=== PATIENT | female | born 1995 | race Caucasian/White ===

== ENCOUNTER 2020-08-23 19:49 | Inpatient (IN) | payer OTHER ==
[~2020-08-23] VITALS: Ht 162.6 cm; Wt 50.3 kg
--- NOTE | 2020-08-23 19:53 | NUR ---
Dr. Savage at bedside for mse.
[2020-08-23] MEDS ORDERED: HYDROMORPHONE 1 MG/1 ML DISP.SYRIN IV ONE ×2 (20:00→21:00)
[2020-08-23] MEDS ORDERED: ONDANSETRON 4 MG/2 ML VIAL IV ONE ×2 (20:00→21:00)
[2020-08-23] MEDS ORDERED: IV NORMAL SALINE 1000 ML BAG IV ONE (20:00)
--- NOTE | 2020-08-23 20:00 | NUR ---
Pt. bib ra 39 for chest pain radiating to the back starting 20 min prior. EMS placed 18g rac. Pt. was given Toridol 15mg IV in the field. Pt. states their pain is 10/10. Pt. has hx of sickle cell anemia.
[2020-08-23] MEDS ORDERED: HYDROMORPHONE 2 MG/1 ML DISP.SYRIN ONE ×2 (20:05→21:10)
[2020-08-23] MEDS ORDERED: ONDANSETRON 4 MG/2 ML VIAL ONE ×2 (20:05→21:09)
[2020-08-23 21:04] LABS: MEAN CORPUSCULAR HEMOGLOBIN 38.2 uug (24.7-32.8); MEAN CORPUSCULAR VOLUME 105.8 fL (75.5-95.3); PLATELET COUNT (AUTO) 186 K/uL (179-408)
--- NOTE | 2020-08-23 21:05 | NUR ---
Xray at bedside
[2020-08-23 21:10] LABS: CARBON DIOXIDE 24 mmol/L (21-32); CHLORIDE 107 mmol/L (98-107); CREATININE 0.3 mg/dL (0.6-1.3); GLUCOSE 95 mg/dL (74-106); HEMATOCRIT 19.3 % (31.2-41.9); POTASSIUM 3.7 mmol/L (3.5-5.1); UREA NITROGEN, BLOOD 8 mg/dL (7-18)
[2020-08-23 21:16] LABS: ALANINE AMINOTRANSFERASE 78 U/L (14-59); ALKALINE PHOSPHATASE 123 U/L (50-136); ASPARTATE AMINOTRANSFERASE 87 U/L (15-37); LIPASE 132 U/L (73-393)
[2020-08-23] MEDS ORDERED: ALBU8.5H8 IH (21:16)
[2020-08-23] MEDS ORDERED: TESTOSTERONE IM (21:31)
--- NOTE | 2020-08-23 21:35 | NUR ---
Verifying with pts. insurance if pt. can be admitted for sickle cell exacerbation.
--- NOTE | 2020-08-23 22:42 | NUR ---
Called [facility] to page Erik Patino NP.
--- NOTE | 2020-08-23 23:09 | NUR ---
Dr. Savage consulting w/ Dr. Rothman on phone for admitting pt.
--- NOTE | 2020-08-23 23:47 | NUR ---
Gave report to FE Cabezas. for pt. admission to tele rm [id number].
[2020-08-24] VITALS (10 sets, daily range): BP systolic 90–108; BP diastolic 46–71
--- NOTE | 2020-08-24 01:09 | NUR ---
Blood transfusion to be continued on 3rd floor where pt. is being admitted, Raulito MIRAMONTES aware.
--- NOTE | 2020-08-24 02:00 | NUR ---
Patient brought to Tele unit from Er via gurney by staff nurse.Patient AALOx4 with O2 at 2LPM via NC saturating well. Iv on Right AC 18 g patent and intact continue blood transfusion .Patient still c/o chest pain . VS 105/64,98.6 ,79 ,18.[facility] called and notified of the patient admission with Order received, noted and carried out. Diluadid IV PRN [address] now.Per Dr Moseley patient was signed out to some one . Dr Patino Notified as well .Awaiting for admitting orders.Charge nurse made aware. Will continue to monitor.
[2020-08-24] MEDS ORDERED: HYDROMORPHONE 1 MG/1 ML DISP.SYRIN IV PRN (03:30)
--- NOTE | 2020-08-24 04:00 | NUR ---
Blood transfusion completed. Assisted patient to bathroom using crutches. Afebrile, Bp 108/71, 18,89, 100 % with O2 at 2LPM via NC.
[2020-08-24] MEDS ORDERED: ACETAMINOPHEN 325 MG TABLET PO PRN (06:15)
[2020-08-24] MEDS ORDERED: ONDANSETRON 4 MG/2 ML VIAL IV PRN (06:15)
[2020-08-24] MEDS ORDERED: MAGNESIUM HYDROXIDE 30 ML LIQUID UDC PO PRN (06:15)
[2020-08-24] MEDS: PANTOPRAZOLE SODIUM 40 MG TABLET.DR PO SCH (06:56)
[2020-08-24 08:07] LABS: MEAN CORPUSCULAR HEMOGLOBIN 36.1 uug (24.7-32.8); MEAN CORPUSCULAR VOLUME 100.5 fL (75.5-95.3); PLATELET COUNT (AUTO) 168 K/uL (179-408)
[2020-08-24] MEDS: HYDROMORPHONE 1 MG/1 ML DISP.SYRIN IV PRN ×3 (08:26→21:55)
[2020-08-24 08:41] LABS: HEMATOCRIT 21.5 % (31.2-41.9)
[2020-08-24] MEDS: CEFTRIAXONE 1 G in IV DEXTROSE 5% 50 ML IV SCH (13:37)
[2020-08-24] MEDS: IV 1/2NS 1000 ML 1,000 ML IV PRN (13:38)
[2020-08-24 14:08] LABS: *BILIRUBIN,URIN NEGATIVE (NEGATIVE); *BLOOD, URINE NEGATIVE (NEGATIVE); *CLARITY,URINE SLIGHTLY CLOUDY (CLEAR); *COLOR,URINE DARK YELLOW (YELLOW); *KETONES,URINE NEGATIVE (NEGATIVE); *UROBILINOGEN,URINE 0.2 E.U./dl (NORMAL); LEUKOCYTE ESTERASE ,URINE TRACE (NEGATIVE); NITRITE, URINE POSITIVE (NEGATIVE); PH,URINE 5.5 (5.0-8.0); UGLUCOSE NEGATIVE (NEGATIVE)
[2020-08-24 14:19] LABS: BACTERIA,URINE FEW /HPF (NONE SEEN); RBC,URINE 0-3 /HPF (0-3); SQUAMOUS EPITHELIAL CELL,UR FEW /HPF (NONE SEEN)
[2020-08-24] MEDS: AZITHROMYCIN IV 500 MG in IV DEXTROSE 5% 250 ML IV SCH (14:23)
[2020-08-24] MEDS ORDERED: ALBUTEROL SULFATE 2.5 MG/3 ML NEBU NEB PRN (15:15)
--- NOTE | 2020-08-24 18:40 | NUR ---
Patient cooperative with care, received one unit of blood, and tolerated well. Complaints of chest pain, reported to provider, no indication of acute cardiac issues noted per primary.
[2020-08-25] VITALS (7 sets, daily range): BP systolic 97–117; BP diastolic 52–66
[2020-08-25] MEDS: HYDROMORPHONE 1 MG/1 ML DISP.SYRIN IV PRN ×5 (00:57→20:04)
[2020-08-25] MEDS: PANTOPRAZOLE SODIUM 40 MG TABLET.DR PO SCH (06:29)
[2020-08-25 06:34] LABS: HEMATOCRIT 25.9 % (31.2-41.9); MEAN CORPUSCULAR VOLUME 100.5 fL (75.5-95.3); PLATELET COUNT (AUTO) 172 K/uL (179-408)
--- NOTE | 2020-08-25 06:45 | NUR ---
Patient remains in stable condition, resting comfortably, no SOB or signs of distress. Patient has been afebrile all night. remains on 2L NC, SAT 94%
[2020-08-25 06:53] LABS: ALANINE AMINOTRANSFERASE 76 U/L (14-59); ALKALINE PHOSPHATASE 88 U/L (50-136); ASPARTATE AMINOTRANSFERASE 81 U/L (15-37); BILIRUBIN,TOTAL 3.7 mg/dL (0.2-1.0); CARBON DIOXIDE 26 mmol/L (21-32); CHLORIDE 104 mmol/L (98-107); CREATININE 0.4 mg/dL (0.6-1.3); GLUCOSE 79 mg/dL (74-106); MAGNESIUM 1.9 mg/dL (1.8-2.4); PHOSPHOROUS 4.9 mg/dL (2.5-4.9); POTASSIUM 3.9 mmol/L (3.5-5.1); TOTAL PROTEIN, SERUM 6.5 g/dL (6.4-8.2); UREA NITROGEN, BLOOD 12 mg/dL (7-18)
--- NOTE | 2020-08-25 07:10 | NUR ---
Received pt. in bed resting comfortably no c/of pain or any other discomfort. On room air, saturation within desired limits. IV access to RAC with ordered iv fluids running. Will continue with care plan.
[2020-08-25] MEDS: IV 1/2NS 1000 ML 1,000 ML IV PRN (07:41)
[2020-08-25] MEDS ORDERED: TOCILIZUMAB 400 MG in IV NORMAL SALINE 80 ML IV ONE (08:45)
[2020-08-25] MEDS: CEFTRIAXONE 1 G in IV DEXTROSE 5% 50 ML IV SCH (12:00)
[2020-08-25] MEDS: AZITHROMYCIN IV 500 MG in IV DEXTROSE 5% 250 ML IV SCH (13:39)
--- NOTE | 2020-08-25 18:31 | NUR ---
Left pt. in bed resting comfortably no c/of pain or any other discomfort. On room air, saturation within desired limits. IV access to RAC with ordered iv fluids running. GI: patient with no c/of n.v.d. but refusing to eat both lunch and dinner. Will endorse continuity of care to incoming shift.
[2020-08-26] VITALS: BP 107/62
[2020-08-26] MEDS: HYDROMORPHONE 1 MG/1 ML DISP.SYRIN IV PRN ×3 (00:06→08:36)
[2020-08-26] MEDS: IV 1/2NS 1000 ML 1,000 ML IV PRN (02:55)
[2020-08-26 04:00] VITALS: BP 100/51
[2020-08-26 05:06] LABS: HEPATITIS Be ANTIGEN Negative (Negative)
[2020-08-26] MEDS: PANTOPRAZOLE SODIUM 40 MG TABLET.DR PO SCH (06:49)
[2020-08-26 06:55] LABS: HEMATOCRIT 25.4 % (31.2-41.9); MEAN CORPUSCULAR HEMOGLOBIN 35.3 uug (24.7-32.8); MEAN CORPUSCULAR VOLUME 100.4 fL (75.5-95.3); PLATELET COUNT (AUTO) 162 K/uL (179-408)
[2020-08-26 08:00] VITALS: BP 93/40
[2020-08-26 11:47] VITALS: BP 98/45
[2020-08-26] MEDS: CEFTRIAXONE 1 G in IV DEXTROSE 5% 50 ML IV SCH (12:30)
--- NOTE | 2020-08-26 12:33 | NUR ---
care taken over right now, appeared very drowsy, quickly opened eyes, then back to sleep. " did not want to eat, didnt want to talk, just to rest " in no respiratory distress, on room air, sat from 96-98%, and no complaint of pain.
[2020-08-26] MEDS: AZITHROMYCIN IV 500 MG in IV DEXTROSE 5% 250 ML IV SCH (13:30)
--- NOTE | 2020-08-26 13:43 | NUR ---
requested pain meds while very drowsy; explained why author hold the med right now until he fully awake. Agrees and back to sleep quickly
[2020-08-26] MEDS ORDERED: AZIT250T13 PO (13:55)
[2020-08-26 16:06] VITALS: BP 117/65
--- NOTE | 2020-08-26 16:36 | NUR ---
fully awake, denied pain, seen by F[facility], patient is discharged to home. Advised to call family for fern picker, expected time to leave the floor at 1700 tonite. HL, heart monitor discontinued. Alert, oriented , in no respiratory distress. Patient is discharged to home
[2020-08-29 19:11] LABS: *HEMOGLOBIN A 48.0 LOW; *HEMOGLOBIN S 47.3 HIGH
[2020-08-29 19:12] LABS: *HEMOGLOBIN A2 2.6; *HEMOGLOBIN F 2.1 HIGH
== END 2020-08-26 17:30 | disposition home or self-care (01) | DRG 662 ==
LOC: ER 19:57 → TELE3 08-24 01:17
PROVIDERS: ADMIT Nurse Practitioner Family; ATTEND Nurse Practitioner Acute Care
PROC: 30233N1 Transfusion of Nonautologous Red Blood Cells into Peripheral Vein, Percutaneous Approach (ICD-10-PCS; principal; 2020-08-24)
DX: D57.00 Hb-SS disease with crisis, unspecified (principal); J15.9 Unspecified bacterial pneumonia; D69.6 Thrombocytopenia, unspecified; R65.10 Systemic inflammatory response syndrome (SIRS) of non-infectious origin without acute organ dysfunction; D53.9 Nutritional anemia, unspecified; J45.909 Unspecified asthma, uncomplicated; N39.0 Urinary tract infection, site not specified; Z20.822 Contact with and (suspected) exposure to COVID-19; D72.829 Elevated white blood cell count, unspecified; R74.01 Elevation of levels of liver transaminase levels
CPT/HCPCS: 36415; 70030-TC; 71045; 83021; 83605; 83690; 83735; 84100; 85025; 85660; 86803; 86850; 86900; 86901; 86920; 87040; 87086; 87350; 93005; A4663; G0378; J0456; J0696; J1170; J2405; J3490; J7030; J7040; J7060; J7120; P9016; P9021